=== PATIENT | male | born 1990 | race Caucasian/White ===

== ENCOUNTER 2025-04-07 18:34 | Emergency (ER) | payer BC, MEDICAID, SELFPAY ==
--- NOTE | 2025-04-07 18:34 | XRR_ITS ---
PROCEDURE INFORMATION: Exam: XR Chest Exam date and time: 04/07/2025 6:38 PM Age: 35 years old Clinical indication: Pain; Chest pressure; Additional info: Chest pain TECHNIQUE: Imaging protocol: Radiologic exam of the chest. Views: 1 view. COMPARISON: No relevant prior studies available. FINDINGS: Lungs: Unremarkable. No consolidation. Pleural spaces: Unremarkable. No pleural effusion. No pneumothorax. Heart/Mediastinum: Unremarkable. No cardiomegaly. Bones/joints: Unremarkable. XR/XR chest 1V portable [id number] IMPRESSION: No acute findings.
--- NOTE | 2025-04-07 18:34 | ECG_ITS ---
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 Measurements Intervals [place] Rate: 93 P: 49 IN: 147 QRS: 32 QRSD: 100 T: 35 QT: 335 QTc: 418 Interpretive Statements SINUS RHYTHM WITH SINUS ARRHYTHMIA INCOMPLETE RIGHT BUNDLE BRANCH BLOCK [90+ ms QRS DURATION, TERMINAL R IN V1/V2, 40+ ms S IN I/aVL/V4/V5/V6] No previous ECG available for comparison Electronically Signed On 04-08-2025 21:27:02 PLUNGER MACHINE OPERATOR by Codie Servin M.D. [id number]
[2025-04-07 18:37] VITALS: BP 141/82; PULSE 101; RESP 16; TEMP 36.7; O2SAT 97; BMI 29.2
[2025-04-07 18:46] LABS: Hematocrit 43.6 % (37-53); Hemoglobin 14.50 g/dL (11.27-16.99); Mean Corpuscular HGB Conc 33.3 g/dL (30-55); Mean Corpuscular Hemoglobin 29.4 pg (27-33); Mean Corpuscular Volume 88.3 fl (82-101); Nucleated Red Blood Cells % 0 %; Platelet Count 316 10^3/cmm (157-399); Red Blood Count 4.94 10^6/uL (3.85-5.65); White Blood Count 7.24 10^3/uL (3.29-11.43)
--- NOTE | 2025-04-07 18:55 | ED_ITS ---
HPI - Chest Pain 2 General: Chief Complaint: Chest Pain Stated Complaint: Chest Pain Time Seen by Provider: 04/07/25 18:37 Source: patient Mode of arrival: EMS Limitations: no limitations History of Present Illness: Patient is a 35-year-old male who is presenting to the emergency department by ambulance for complaints of substernal chest pain that began at 0600 this morning. He has had this pain intermittently for greater than a year, he tells me that last March he presented to his the [facility] in [place] and was subsequently admitted and had talked about getting cardiac catheterization done due to abnormality on the stress test. However he states that he did not have this catheterization done as he states he is a prior drug user and was told by a nurse at that time that this would contraindicate getting cath if he had recently used, he states that overall he did not get the catheterization and has dealt with intermittent chest pain since. Pain was relieved by aspirin and nitroglycerin prehospital. He states that when he does have the pain it radiates to his left arm and to his left neck. Does not report taking any medications at home, he does not see primary care or [facility] as an outpatient. Pain is reproducible to palpation, he does not report any specific strenuous activity recently. He is not endorsing any associated shortness of breath, diaphoresis, nausea/vomiting, or syncopal episodes. At this time his vitals are stable, he is, cooperative, nontoxic-appearing. Incomplete right bundle branch block on his chest x-ray but no other acute ST segment elevation changes. Denies a history of endocarditis. Does not report any recent drug use. No fevers. MD complaint: chest pain Onset (ago): hour(s) Timing of current episode: episodic Prior episodes: Yes Onset: awoke with symptoms Pain location: substernal Pain radiation: left arm, neck and jaw/teeth Severity: similar to previous episodes Quality: heaviness Relieving factors: nitroglycerin Exacerbating factors: nothing Associated symptoms: Deny abdominal pain, dyspnea, fever(s), nausea, palpitations or vomiting Treatment prior to arrival: aspirin and nitroglycerin Related Data Allergies Allergy/AdvReac Type Severity Reaction Status Date / Time ibuprofen Allergy ALGY-Bliste Verified 04/07/25 18:43 r Penicillins Allergy ALGY-Bliste Verified 12/15/25 18:43 r Review of Systems 2 General: Reports: 10 or more systems reviewed and unremarkable except in HPI and below Const: Denies: fever(s), chills or fatigue Eyes: Denies: change in vision ENMT: Denies: throat pain, ear or mastoid pain or nasal discharge Card: Reports: chest pain; Denies: palpitations, swelling of feet/ankles or lightheadedness Resp: Denies: dyspnea, productive cough or wheezing GI: Denies: abdominal pain, nausea, vomiting, diarrhea or constipation : Denies: flank pain, difficulty urinating, dysuria or urinary frequency Musc: Reports: neck pain; Denies: back pain or joint pain Skin/Breast: Denies: rash Neuro: Denies: headache(s), numbness in extremities or weakness in extremities Physical Exam 2 Const: COMMON NORMALS: no acute distress, patient oriented x3 and no limitations GENERAL APPEARANCE: cooperative, comfortable and well developed ORIENTATION/CONSCIOUSNESS: Yes awake, Yes oriented to person, Yes oriented to place and Yes oriented to time Neck/C-Spine: COMMON NORMALS: full ROM, supple and no JVD Resp: COMMON NORMALS: normal respiratory effort, No retractions, No use of accessory muscles and clear to auscultation bilaterally AUSCULTATION: clear to auscultation bilaterally Cardio: COMMON NORMALS: no JVD, regular rate, regular rhythm, No clicks present (Cardio), No murmurs present (Cardio) and No rub (Cardio) RATE: r egular rate RHYTHM: regular rhythm GI: COMMON NORMALS: Normal to inspection, nondistended, normoactive bowel sounds present, Soft to palpation and non-tender AUSCULTATION: Yes normoactive bowel sounds PALPATION: Yes Soft to palpation RECTAL EXAM: Yes deferred Extremity: COMMON NORMALS: normal to inspection, full ROM and capillary refill normal Neuro: COMMON NORMALS: patient oriented x3, moves all extremities, no focal motor deficits and no sensory deficits noted SENSORIUM/ORIENTATION: Yes oriented to person, Yes oriented to place and Yes oriented to time Skin: COMMON NORMALS: no rashes or lesions noted GENERAL SKIN EXAM: no rashes or lesions noted Course 2 Vital Signs: Vital signs: Vital Signs Temperature 98.1 F 04/07/25 18:37 Pulse Rate 94 04/07/25 19:12 Respiratory Rate 16 04/07/25 18:37 Blood Pressure 108/73 04/07/25 19:12 Pulse Oximetry 96 04/07/25 19:12 Oxygen Delivery Me thod Room Air 04/07/25 19:12 MDM - Chest Pain Medical Decision Making This patient presented by ambulance for chest pain, this episode since 0600 this morning but he does note to me over the past year it has been intermittent. He had previously received cardiac workup at hospital in [place] last March, but tells me he did not end up going through with cardiac catheterization for what he tells me was due to drug use purposes. Tells me that he has just dealt with the pain since, he has been at [facility] for the past few weeks and states he discharges on the . Pain was relieved by nitro and aspirin, however is also reproducible to palpation on exam and he has no other associated symptoms or cardiac/anginal equivalents. He has no other risk factors, denies any personal cardiac history or significant family cardiac history at an early age. His EKG was unremarkable, chest x-ray showing no acute cardiopulmonary findings. Troponin was negative. BNP negative. Rest of his lab work reassuring. He did report to me a history of drug use, there was no global ST elevation or troponin findings that would be consistent with a possible endocarditis, no friction rub on examination. I have low suspicion of this, I suspect this is musculoskeletal due to the reproducibility and normal lab workup, and he tells me he has a reliable follow-up of which she will follow-up once he is discharged from [facility] for further outpatient cardiac evaluation. He also knows to return if his condition worsens. Patient discharged at this time. Heart score 0. Lab Data 04/07/25 18:37 04/07/25 18:37 Radiology Impressions Chest X-Ray 04/07/25 18:34 IMPRESSION: No acute findings. Laboratory Results WBC 7.24 10^3/uL (3.29-11.43) 04/07/25 18:37 RBC 4.94 10^6/uL (3.85-5.65) 04/07/25 18:37 Hgb 14.50 g/dL (11.27-16.99) 04/07/25 18:37 Hct 43.6 % (37-53) 04/07/25 18:37 MCV 88.3 fl (82-101) 04/07/25 18:37 MCH 29.4 pg (27-33) 04/07/25 18:37 MCHC 33.3 g/dL (30-55) 04/07/25 18:37 RDW 13.2 % (12.1-15.1) 04/07/25 18:37 Plt Count 316 10^3/cmm (157-399) 04/07/25 18:37 MPV 9.8 fL (7.4-10.4) 04/07/25 18:37 Neut % (Auto) 57.9 % 04/07/25 18:37 Lymph % (Auto) 29.4 % 04/07/25 18:37 [place] % (Auto) 9.0 % 04/07/25 18:37 Eos % (Auto) 2.1 % 04/07/25 18:37 Baso % (Auto) 1.0 % 04/07/25 18:37 Neut # (Auto) 4.20 10^3/uL (1.8-7.7) 04/07/25 18:37 Lymph # (Auto) 2.1 10^3/uL (0.8-4.8) 04/07/25 18:37 [place] # (Auto) 0.7 10^3/uL (0.2-0.9) 04/07/25 18:37 Eos # (Auto) 0.2 10^3/uL (0.0-0.8) 04/07/25 18:37 Baso # (Auto) 0.1 10^3/uL (0.0-0.1) 04/07/25 18:37 Nucleated RBC % (auto) 0 % 04/07/25 18:37 Nucleated RBCs # 0.0 /100WBC 04/07/25 18:37 PT 12.20 SECONDS (12.1-14.9) 04/07/25 18:37 INR 0.85 (0.8-1.2) 04/07/25 18:37 APTT 25.5 SECONDS (23.9-36.7) 04/07/25 18:37 Sodium 135 mmol/L (136-145) L 04/07/25 18:37 Potassium 4.0 mmol/L (3.5-5.1) 04/07/25 18:37 Chloride 95 mmol/L (98-107) L 04/07/25 18:37 Carbon Dioxide 25 mmol/L (22-29) 04/07/25 18:37 Anion Gap 19.0 (5-19) 04/07/25 18:37 BUN 19 mg/dL (6-20) 04/07/25 18:37 Creatinine 0.8 mg/dL (0.7-1.2) 04/07/25 18:37 GFR Calculation 109.4 mL/min (90-130) 04/07/25 18:37 Glucose 103 mg/dL (65-115) 04/07/25 18:37 Calculated Osmolality 283 mOsm/kg (285-295) L 04/07/25 18:37 Calcium 9.8 mg/dL (8.5-10.5) 04/07/25 18:37 Total Bilirubin 0.2 mg/dL (0.15-1.2) 04/07/25 18:37 AST 28 U/L (0-40) 04/07/25 18:37 ALT 67 U/L (0-41) H 04/07/25 18:37 Alkaline Phosphatase 125 U/L (40-130) 04/07/25 18:37 Troponin T Baseline < 6 ng/L (0-15) 04/07/25 18:37 NT-Pro-B Natriuret Pep < 36 pg/mL (0-125) 04/07/25 18:37 Total Protein 7.4 g/dL (6.6-8.7) 04/07/25 18:37 Albumin 4.6 g/dL (3.5-5.2) 04/07/25 18:37 Globulin 2.8 g/dL (1.3-4.6) 04/07/25 18:37 Lipase 55 U/L (13-60) 04/07/25 18:37 All radiology interpretation(s) finalized by discharge Discharge Plan Discharge Patient Disposition: Home Clinical Impression: Chest pain Qualifiers: Chest pain type: unspecified Qualified Code(s): R07.9 - Chest pain, unspecified Condition: Stable Discharge Orders: Discharge ED (Routine); Ordered 04/07/25 Ordered By: Nelson Becerra Patient Instructions: Chest Pain (ED), Patient Portal & Oriana Instructions Activity Restrictions/Additional Instructions: Discharge Instructions Diagnosis: Chest pain of unknown cause, most likely musculoskeletal (chest wall pain) What happened during your visit: You came to the hospital with chest pain. We performed several tests to check your heart, including: - Blood tests (troponin and BNP) to look for heart damage - An electrocardiogram (ECG) to check your heart rhythm - A chest X-ray to look at your lungs and heart All of these tests were normal. Your chest pain appears to be coming from your chest wall muscles or ribs (musculoskeletal pain) rather than your heart, especially since pressing on your chest reproduced the pain you were feeling. What to do at home: Pain management: - You may take twph-yns-xizvzuy pain relievers such as ibuprofen (Advil, Motrin) or naproxen (Aleve) as directed on the package for 1-2 weeks to help with chest wall pain - Acetaminophen (Tylenol) is another option if you cannot take ibuprofen or naproxen - Apply ice or heat to the painful area for 15-20 minutes at a time - Avoid activities that make the pain worse Follow-up care: You need to see your primary care doctor for further heart evaluation as an outpatient. This appointment should be scheduled within 30 days, and ideally within 2 weeks. Your doctor may decide if you need additional heart testing based on your symptoms and risk factors. When to return to the emergency department immediately: Call 911 or return to the emergency department right away if you experience: - Chest pain that is different from what you experienced today (new, more severe, or lasting longer) - Chest pain with shortness of breath, sweating, nausea, or feeling like you might pass out - Chest pain that spreads to your jaw, neck, shoulders, or arms - Severe shortness of breath - Fainting or near-fainting - Rapid or irregular heartbeat that doesn't go away - Any other symptoms that concern you Important reminders: - Even though your heart tests were normal today, it's important to follow up with your primary care doctor as scheduled - Continue taking any medications prescribed by your doctor - If your chest pain gets worse or changes in character, seek medical attention immediately Questions? If you have questions about your discharge instructions, call your primary care doctor's office. Print Language: Luxembourgish Coding Level of Care Code ED Varnish Maker for Barby Solis Heart Score HEART Score Components History: Slightly Suspicous EKG: Normal Age: Less than 45 yrs Risk Factors: No Risk Factors Known Troponin: Baseline Trop <16 ng/L HEART Score RESULT HEART Score: 0
[2025-04-07 18:58] LABS: INR 0.85 (0.8-1.2); Prothrombin Time 12.20 SECONDS (12.1-14.9)
[2025-04-07 18:59] LABS: Partial Thromboplastin Time 25.5 SECONDS (23.9-36.7)
[2025-04-07 19:12] VITALS: BP 108/73; PULSE 94; O2SAT 96
--- OUTSIDE RECORDS SUMMARY | 2025-04-07 19:34 | XMS_ITS | Clinical Summary ---
Author Organization [facility] Address [address] [address] Phone Care Team Providers Care Driver Trainee Name Role Phone Unavailable Primary Care Provider Unavailabl e Allergies Active Allergy Reactions Criticality Noted Date Comments Ibuprofen 01/08/2024 Penicillin 01/08/2024 Medications hydrOXYzine pamoate (Vistaril) 25 mg capsuleIndicati ons:anxiety Take 1 capsule (25 mg total) by mouth every 6 (six) hours if needed for anxiety for up to 10 days. 45 capsule 01/11/2024 Active traZODone (Desyrel) 100 mg tabletIndicatio ns:insomnia associated with depression Take 1 tablet (100 mg total) by mouth at night if needed for sleep. 30 tablet 01/11/2024 Active risperiDONE (Risperdal) 1 mg tabletIndicatio ns:mood disorder Take 1 tablet (1 mg total) by mouth 2 (two) times a day. 60 tablet 01/11/2024 Active Active Problems Problem Noted Date Diagnosed Date Mood disorder 01/08/2024 Resolved Problems Problem Noted Date Diagnosed Date Resolved Date Major depressive disorder, r ecurrent, unspecified 01/08/2024 01/08/2024 Social History Tobacco Use Types Packs/Day Years Used Date Smoking Tobacco: Every Day Cigarettes Tobacco Cessation:Ready to Q uit: No; Counseling Given: Yes Alcohol Use Standard Drinks/Week Comments Not Currently 0 (1 standard drink = 0.6 oz pur e alcohol) [facility] Utilities Answer Date Recorded In the past 12 months has [employer], gas, oil, or water company threatened to shut off services in your home? Yes 01/08/2024 Humiliation, Afraid, Rape, and Kick questionnair e Answer Date Recorded Within the last year, have y ou been afraid of your partner or ex-partner? No 01/08/2024 Within the last year, have y ou been humiliated or emotionally abused in other ways by your partner or ex-partner? No Within the last year, have y ou been kicked, hit, slapped, or otherwise physically hurt by your partner or ex-partner? No 01/08/2024 Within the last year, have y ou been raped or forced to have any kind of sexual activity by your partner or ex-partner? No 01/08/2024 Overall Financial Resource Strain (CARDIA) Answe r Date Recorded How hard is it for you to pa y for the very basics like food, housing, medical care, and heating? Very hard 01/08/2024 Hunger Vital Sign Answer Date Recorded Within the past 12 months, y ou worried that your food would run out before you got the money to buy more. Often true 01/08/20 24 Within the past 12 months, t he food you bought just didn't last and you didn't have money to get more. Often true 01/08/2024 PRAPARE - Transportation Answer Date Re corded In the past 12 months, has l ack of transportation kept you from medical appointments or from getting medications? Yes 12/23 In the past 12 months, has l ack of transportation kept you from meetings, work, or from getting things needed for daily living? Yes 01/08/2024 Housing Stability Vital Sign Answer Adam e Recorded In the last 12 months, was t here a time when you were not able to pay the mortgage or rent on time? Yes 01/08/2024 In the past 12 months, how m any times have you moved where you were living? 2 01/08/2024 At any time in the past [address] [facility], were you homeless or living in a snf (including now)? Yes 01/08/2024 Sex and Gender Information Value Date Recorded Sex Assigned at Not on file Legal Sex Male 6:51 PM CDT Gender Identity Not on file Sexual Orientation Not on file Last Filed Vital Signs Vital Sign Reading Time Taken Comments Blood Pressure 118/78 01/11/2024 8:13 AM CDT Pulse 107 01/11/2024 8:14 AM CDT Temperature 36.4 C (97.5 F) 01/11/2024 8:13 AM CDT Respiratory Rate 20 01/11/2024 8:13 AM CDT Oxygen Saturation 97% 01/11/2024 8:13 AM CDT Inhaled Oxygen Concentration - - Weight 72.8 kg (160 lb 6.4 oz) 01/08/2024 12:46 AM CDT Height 171.5 cm (5' 7.5 ) 01/08/2024 12:46 AM CD T Body Mass Index 24.75 01/08/2024 12:46 AM CDT Plan of Treatment Health Maintenance Due Date Last Done Comments Lipid Panel 1989 MMR Vaccines (1 of 1 - Stand haider series) 1990 DTaP,Tdap,and Td Vaccines (1 - Tdap) 01/24/1996 Varicella Vaccines (1 of 2 - 13+ 2-dose series) 2002 Depression Screening 2007 Hepatitis C Screening 2007 Social Drivers of Health (SDoH) 2007 Hepatitis B Vaccines (1 of 3 - 19+ 3-dose series) 01/24/2008 Pneumococcal Vaccines (1 of 2 - PCV) 01/24/2008 HPV Vaccines (1 - 3-dose SCD M series) 01/24/2016 COVID-19 Vaccines (1 - 2024- season) 2024 Influenza Vaccine (#1) 2024 Zoster Vaccines (1 of 2) 2039 RSV Vaccines (1 - 1-dose 75+ series) 01/24/2064 HIB Vaccines Aged Out No longer eligi ble based on patient's age to complete this topic Hepatitis A Vaccines Aged Out No long er eligible based on patient's age to complete this topic IPV Vaccines Aged Out No longer eligi ble based on patient's age to complete this topic Meningococcal B Vaccine Aged Out No l onger eligible based on patient's age to complete this topic Meningococcal Vaccine Aged Out No norman maxim eligible based on patient's age to complete this topic Rotavirus Vaccines Aged Out No longer eligible based on patient's age to complete this topic Insurance [facility] MEDICAID REPLACEMENT Advance Directives For more information, please contact: [phone] (7:30 AM - 5PM [facility], 7 days a week) * Full Code (Latest Code Status on File) Date Activated Date Inactivated Comments 01/08/2024 12:22 AM 01/11/2024 4:41 PM
--- OUTSIDE RECORDS SUMMARY | 2025-04-07 19:34 | XMS_ITS | Clinical Summary ---
Author Organization [facility] Address [address] [place] [address] Care Team Providers Care Stiff Leg Operator Name Role Phone Unavailable Primary Care Provider Unavailabl e Allergies Active Allergy Reactions Criticality Noted Date Comments Penicillins 09/24/2020 Medications No known medications Social History Tobacco Use Types Packs/Day Years Used Date Smoking Tobacco: Every Day Smokeless Tobacco: Never Alcohol Use Standard Drinks/Week Comments Yes 0 (1 standard drink = 0.6 oz pur e alcohol) Sex and Gender Information Value Date Recorded Sex Assigned at Not on file Legal Sex Male 10:22 AM CDT Gender Identity Not on file Sexual Orientation Not on file Last Filed Vital Signs Vital Sign Reading Time Taken Comments Blood Pressure 100/57 09/24/2020 1:45 PM CDT Pulse 78 09/24/2020 1:45 PM CDT Temperature 36.7 C (98.1 F) 09/24/2020 10:08 AM CDT Respiratory Rate 16 09/24/2020 1:45 PM CDT Oxygen Saturation 97% 09/24/2020 1:45 PM CDT Inhaled Oxygen Concentration - - Weight 59 kg (130 lb) 09/24/2020 10:08 AM CDT Height 170.2 cm (5' 7 ) 09/24/2020 10:08 AM CDT Body Mass Index 20.36 09/24/2020 10:08 AM CDT Plan of Treatment Health Maintenance Due Date Last Done Comments Hepatitis C Screening 1989 Anxiety Screening 1997 HIV Screening 01/24/2004 Depression Screening 2007 Hepatitis B Vaccine (1 of 3 - 19+ 3-dose series) 01/24/2008 Pneumococcal Vaccine 0-50 ye ars (1 of 2 - PCV) 01/24/2008 TDAP/DTaP/TD Vaccines (1 - Tdap) 01/24/2008 COVID-19 Vaccine (1 - 2023-2 5 season) 2024 Influenza Series (#1) 2024 01/07/2019 Meningococcal B Vaccine Aged Out No l onger eligible based on patient's age to complete this topic Insurance BCBS OUT OF STATE
[2025-04-07 19:44] LABS: Alanine Aminotransferase 67 U/L (0-41); Albumin Level 4.6 g/dL (3.5-5.2); Alkaline Phosphatase 125 U/L (40-130); Anion Gap 19.0 (5-19); Aspartate Amino Transferase 28 U/L (0-40); Blood Urea Nitrogen 19 mg/dL (6-20); Calcium 9.8 mg/dL (8.5-10.5); Carbon Dioxide 25 mmol/L (22-29); Chloride 95 mmol/L (98-107); Globulin 2.8 g/dL (1.3-4.6); Glucose 103 mg/dL (65-115); Lipase 55 U/L (13-60); NT Pro B Type Natriuretic Pept < 36 pg/mL (0-125); Osmolality Calculated 283 mOsm/kg (285-295); Potassium 4.0 mmol/L (3.5-5.1); Sodium 135 mmol/L (136-145); Total Protein 7.4 g/dL (6.6-8.7)
[2025-04-07 19:46] LABS: Troponin(5th) Baseline < 6 ng/L (0-15)
[2025-04-07 19:57] VITALS: BP 113/82; PULSE 97; O2SAT 96
== END 2025-04-07 20:21 | disposition home or self-care (01) ==
PROVIDERS: Emergency Medicine; Emergency Provider Physician Assistant
DX: R07.9 Chest pain, unspecified (principal)
CPT/HCPCS: 36415; 71045; 80053; 83690; 83880; 84484; 85025; 85610; 85730; 93005; 99285